=== PATIENT | female | born 1970 | race Caucasian/White ===

== ENCOUNTER 2022-07-28 04:17 | Day surgery (SDC) | payer OTHER ==
[2022-07-24 11:32] VITALS: BMI 26.6
[2022-07-28 08:19] VITALS: RESP 18
[2022-07-28] MEDS ORDERED: MIDAZOLAM HCL 2 MG/2 ML SINGLE DOSE VIAL ONE (15:33)
[2022-07-28] MEDS ORDERED: FENTANYL CITRATE/PF 50 MCG/ML VIAL ONE (15:33)
[2022-07-28 16:43] VITALS: BP 102/66; PULSE 100; TEMP 98
== END 2022-07-28 17:22 | disposition home or self-care (01) ==
LOC: JASU-SURG 04:17
PROVIDERS: ATTEND Urology
PROC: 0TF4XZZ Fragmentation in Left Kidney Pelvis, External Approach (ICD-10-PCS; principal; 2022-07-28 13:30)
DX: N20.0 Calculus of kidney (principal)
CPT/HCPCS: 81025